=== PATIENT | female | born 1985 | race Caucasian/White ===

== ENCOUNTER 2021-08-23 17:47 | Emergency (ER) | payer OTHER ==
[~2021-08-23 17:47] MED LIST: ATENOLOL25 MG PO; BENTYL 20MG TAB20 MG PO; COLACE100 MG PO; COMBIVENT RESPIM4 GM INH; FAMOTIDINE20 MG PO; FLOVENT HFA INH; HYDROCODON-ACE1 EAC2 PO; IBU600 MG PO; IBUPROFEN800 MG PO; IPRAT-ALBUT 0.5-3 ML INH; KLOR-CON 1010 MEQ PO; LASIX40 MG PO; NORCO 5-325 TA1 EACH PO; PHENERGAN 12.12.5 M1 PO; ZOFRAN ODT 4 MG4 MG PO
[2021-08-23 18:47] LABS: HEMOGLOBIN 13.7 gm/dl (12.3-15.3); RED BLOOD COUNT 4.41 M/UL (4.00-5.10); WHITE BLOOD COUNT 12.5 K/UL (4.5-11.0)
[2021-08-23 19:10] LABS: BUN/CREATININE RATIO 11 (0-10)
== END 2021-08-23 22:25 | disposition home or self-care (01) ==
LOC: ER1 17:47
PROVIDERS: Physician Assistant Medical
DX: R07.89 Other chest pain (principal); Z90.49 Acquired absence of other specified parts of digestive tract; Z90.710 Acquired absence of both cervix and uterus; Z88.1 Allergy status to other antibiotic agents; F17.210 Nicotine dependence, cigarettes, uncomplicated
CPT/HCPCS: 71045; 80053; 82550; 82553; 83874; 83880; 84484; 85025; 85379; 93005; 96374; 96375; 99285; J2270; J2405; Q9967